=== PATIENT | female | born 1965 | race Caucasian/White ===

== ENCOUNTER 2021-07-31 03:49 | Observation (INO) | payer OTHER ==
[~2021-07-31] VITALS: Ht 175.3 cm; Wt 105.4 kg
[~2021-07-31 03:49] MED LIST: COLACE 100MG C100 MG PO; IBUPROFEN600 MG PO; LISINOPRIL-HCT1 EAC2 PO; NORCO 10-325 T1 EACH PO
[2021-07-31 04:49] LABS: HEMOGLOBIN 17.4 gm/dl (12.3-15.3); RED BLOOD COUNT 5.48 M/UL (4.00-5.10); WHITE BLOOD COUNT 13.4 K/UL (4.5-11.0)
[2021-07-31 05:25] LABS: BUN/CREATININE RATIO 12 (0-10)
[2021-07-31] MEDS ORDERED: LISINOPRIL-HCT1 EAC2 PO (10:42)
[2021-08-01 10:05] LABS: HEMOGLOBIN 15.6 gm/dl (12.3-15.3); RED BLOOD COUNT 5.16 M/UL (4.00-5.10); WHITE BLOOD COUNT 7.8 K/UL (4.5-11.0)
[2021-08-01 10:25] LABS: BUN/CREATININE RATIO 16 (0-10)
[2021-08-01] MEDS ORDERED: ATORVASTATIN CA20 MG PO (17:43)
[2021-08-01] MEDS ORDERED: LISINOPRIL10 MG PO (17:43)
[2021-08-01] MEDS ORDERED: CLOPIDOGREL75 MG PO (17:43)
[2021-08-01] MEDS ORDERED: ASPIRIN EC81 MG PO (17:43)
[2021-08-01] MEDS ORDERED: HYDROCHLOROTHIA25 MG PO (17:43)
== END 2021-08-01 19:23 | disposition home or self-care (01) ==
LOC: ER1 03:49 → 3 EAST 08:40 → CDU 08:40 → 3 EAST 08-01 00:35
PROVIDERS: Family Medicine; Internal Medicine; ADMIT Internal Medicine
DX: I63.9 Cerebral infarction, unspecified (principal); G45.9 Transient cerebral ischemic attack, unspecified; G81.94 Hemiplegia, unspecified affecting left nondominant side; I10 Essential (primary) hypertension; E78.00 Pure hypercholesterolemia, unspecified; E78.5 Hyperlipidemia, unspecified; F17.210 Nicotine dependence, cigarettes, uncomplicated; Z90.710 Acquired absence of both cervix and uterus; Z20.822 Contact with and (suspected) exposure to COVID-19; Z79.82 Long term (current) use of aspirin; Z79.899 Other long term (current) drug therapy; Z80.1 Family history of malignant neoplasm of trachea, bronchus and lung
CPT/HCPCS: ECHO; 36415; 70496; 70498; 70551; 71046; 80053; 80061; 82550; 82553; 83036; 83874; 84484; 85025; 85652; 93005; 93306; 97161; 97166; 99284; G0378; J1650; J2405; Q9967; U0002

== ENCOUNTER → 2022-01-07 | Outpatient (CLI) | payer OTHER ==
[~2022-01-07] MED LIST changes: +ASPIRIN EC81 MG PO; +ATORVASTATIN CA20 MG PO; +CLOPIDOGREL75 MG PO; +HYDROCHLOROTHIA25 MG PO; +LISINOPRIL10 MG PO
== END ==
LOC: MAMO 08:00
DX: Z12.31 Encounter for screening mammogram for malignant neoplasm of breast (principal)
CPT/HCPCS: 77063; 77067